=== PATIENT | female | born 1950 | race Caucasian/White ===

== ENCOUNTER 2017-09-15 09:16 | Day surgery (SDC) | payer MEDICARE, MEDICAID ==
[~2017-09-15] VITALS: Ht 148.6 cm; Wt 60.8 kg
[~2017-09-15 09:16] MED LIST: INSU100I28 SQ; SITA1TAB6 PO
[2017-09-15] MEDS ORDERED: TETRACAINE 0.5% OPHTH DROPS 4ML ONE ×2 (09:51→09:53)
[2017-09-15] MEDS ORDERED: CIPROFLOXACIN 0.3% OPHTH SOLN 2.5ML ONE ×2 (09:51→09:53)
[2017-09-15] MEDS ORDERED: NEO/POLYMYX B SULF/DEXAMETH OPHTH OINT 3.5GM ONE ×2 (09:51→09:53)
[2017-09-15] MEDS ORDERED: PHENYLEPHRINE HCL 10% OPHTH DROPS 5ML ONE (09:53)
[2017-09-15] MEDS ORDERED: TROPICAMIDE 1% OPHTH DROPS 15ML ONE (09:53)
[2017-09-15] MEDS ORDERED: BALANCED SALT IRRIG SOLN 15ML ONE (09:53)
[2017-09-15] MEDS ORDERED: LIDOCAINE HCL/PF 2% 20 MG/ML 10ML VIAL ONE (09:53)
[2017-09-15] MEDS ORDERED: CYCLOPENTOLATE HCL 1% OPHTH DROPS 2ML ONE (09:53)
[2017-09-15] MEDS ORDERED: BUPIVACAINE HCL/PF 0.75% (7.5MG/ML) 10ML ONE (09:53)
[2017-09-15] MEDS ORDERED: LIDOCAINE HCL 2%/EPINEPHRINE 1:100,000 20 ML VIAL INFIL ONE (09:53)
[2017-09-15] MEDS ORDERED: TROPICAMIDE 1% OPHTH DROPS 15ML RIGHTEYE ONE (11:30)
[2017-09-15] MEDS ORDERED: PHENYLEPHRINE HCL 10% OPHTH DROPS 5ML RIGHTEYE ONE (11:30)
[2017-09-15] MEDS ORDERED: CYCLOPENTOLATE HCL 1% OPHTH DROPS 2ML RIGHTEYE ONE (11:30)
[2017-09-15] MEDS ORDERED: HYALURONATE SODIUM 14 MG/ML 0.85ML SYRINGE IO ONE (12:14)
[2017-09-15] MEDS ORDERED: LACTATED RINGERS 1,000 ML IV SCH (12:15)
[2017-09-15] MEDS ORDERED: BALANCED SALT IRRIG SOLN COMB1 500ML OP ONE (12:30)
[2017-09-15] MEDS ORDERED: FENTANYL CITRATE/PF 50MCG/ML 2ML VIAL ONE (12:33)
[2017-09-15] MEDS ORDERED: PROPOFOL 200MG/20ML VIAL IV ONE (12:33)
[2017-09-15] MEDS ORDERED: MIDAZOLAM HCL 2 MG/2 ML VIAL ONE ×2 (12:33→12:57)
[2017-09-15] MEDS ORDERED: ATOR40TA70 PO (12:38)
[2017-09-15] MEDS ORDERED: CYCL5TAB PO (12:38)
[2017-09-15] MEDS ORDERED: LISI-604 PO (12:38)
[2017-09-15] MEDS ORDERED: CALC600T12 PO (12:38)
[2017-09-15] MEDS ORDERED: OMEP20TA2 PO (12:38)
[2017-09-15] MEDS ORDERED: ASPI-1159 PO (12:38)
== END 2017-09-15 15:00 | disposition home or self-care (01) ==
LOC: OR 09:16
PROVIDERS: ATTEND Ophthalmology
DX: H25.89 Other age-related cataract (principal); E11.9 Type 2 diabetes mellitus without complications; E78.5 Hyperlipidemia, unspecified; I10 Essential (primary) hypertension; M19.90 Unspecified osteoarthritis, unspecified site; F32.9 Major depressive disorder, single episode, unspecified; K21.9 Gastro-esophageal reflux disease without esophagitis; Z90.89 Acquired absence of other organs; Z98.890 Other specified postprocedural states; Z83.3 Family history of diabetes mellitus; Z80.42 Family history of malignant neoplasm of prostate; Z80.0 Family history of malignant neoplasm of digestive organs; Z79.899 Other long term (current) drug therapy
CPT/HCPCS: 66984; 82962; J2250; J3010; J3490; J7120; V2632; J2704